=== PATIENT | male | born 1945 | race Caucasian/White ===

== ENCOUNTER 2017-07-30 05:26 | Inpatient (IN) ==
[2017-07-30] MEDS ORDERED: SODIUM PHOSPHATE ENEMA 133 ML BOTTLE RECTAL ONE ×2 (05:53→06:00)
[2017-07-30] MEDS ORDERED: SODIUM CHLORIDE 0.9% 50 ML IV ONE (05:53)
[2017-07-30] MEDS ORDERED: cefTRIAXone 1,000 MG VIAL ONE (05:53)
[2017-07-30] MEDS ORDERED: ALVIMOPAN 12 MG CAPSULE PO ONE (06:00)
[2017-07-30] MEDS ORDERED: LACTATED RINGERS 1,000 ML IV SCH (07:00)
[2017-07-30] MEDS ORDERED: ALVIMOPAN 12 MG CAPSULE ONE (07:13)
[2017-07-30 08:39] LABS: Apearance,Urine CLEAR (Clear); Bacteria,Urine Occasional /HPF (Few); Bilirubin,Urine Negative (Negative); Blood, Urine Negative (Negative); Glucose,Urine (UA) Negative (Negative); Ketones,Urine 5 mg/dL (Negative); Mucus,Urine Occasional /LPF (Occasional); Nitrite,Urine Negative (Negative); Protein,Urine 30 MG/DL; RBC,Urine 6 /HPF (0-4); Squamous Epithelial Cell,Urine Occasional /HPF (0-10); Urine Color Yellow (Yellow); WBC,Urine 2 /HPF (0-6)
[2017-07-30] MEDS ORDERED: GLYCOPYRROLATE 0.4 MG/2 ML VIAL ONE (09:00)
[2017-07-30] MEDS ORDERED: ONDANSETRON 4 MG/2 ML VIAL ONE (09:00)
[2017-07-30] MEDS ORDERED: LIDOCAINE 2% 5 ML VIAL ONE (09:00)
[2017-07-30] MEDS ORDERED: PROPOFOL 200 MG/20 ML VIAL IV ONE (09:00)
[2017-07-30] MEDS ORDERED: ROCURONIUM 100 MG/10 ML VIAL IV ONE (09:00)
[2017-07-30] MEDS ORDERED: NEOSTIGMINE 10 MG/10 ML VIAL ONE (09:00)
[2017-07-30] MEDS ORDERED: LIDOCAINE 100 MG/5 ML SYRINGE ONE (09:00)
[2017-07-30] MEDS ORDERED: SUCCINYLCHOLINE 200 MG/10 ML VIAL ONE (09:00)
[2017-07-30] MEDS ORDERED: PHENYLEPHRINE 1 MG/10 ML SYRINGE IV ONE (09:00)
[2017-07-30] MEDS ORDERED: ONDANSETRON 4 MG/2 ML VIAL IV PRN (11:11)
[2017-07-30] MEDS ORDERED: HYDROmorphone PCA 30 MG/30 ML SYRINGE IV ONE (11:25)
[2017-07-30] MEDS ORDERED: MIDAZOLAM 2 MG/2 ML VIAL ONE (11:30)
[2017-07-30] MEDS ORDERED: SEVOFLURANE 1 UNIT/15 MINUTE INH ONE (11:30)
[2017-07-30] MEDS ORDERED: ACETAMINOPHEN 1,000 MG/100 ML VIAL IV ONE (11:30)
[2017-07-30] MEDS ORDERED: SODIUM CHLORIDE 0.9% 1,000 ML IV SCH (11:30)
[2017-07-30] MEDS ORDERED: fentaNYL 100 MCG/2 ML VIAL ONE ×2 (11:30)
[2017-07-30] MEDS: HYDROmorphone PCA 30 MG/30 ML SYRINGE IV SCH (11:31)
--- NOTE | 2017-07-30 11:32 | Operative Note ---
Date of procedure: 07/30/17 Pre-op diagnosis: Prostate cancer, intermediate risk Post-op diagnosis: same Procedure: 72-year-old white male referred with elevated PSA. Biopsy proved intermediate risk carcinoma prostate. Patient has elected undergo robotic assisted laparoscopic radical prostatectomy. This procedure was explained at length and in detail. Risks, complications, outcomes, sequelae, prognosis and alternative therapy was discussed. Patient understood this and agreed to proceed. Patient is brought to the operative suite placed table in supine position on the securing pads. He is then given a general endotracheal anesthetic and then secured to the table in the usual fashion. He is then prepared and draped in usual sterile manner. 22 Yemeni More was inserted in the bladder and the bladder was drained and the More was clamped. Formal timeout performed. An incision is created up in the left upper quadrant for the mini gel port. This is about 3 cm in length. This is carried down to the rectus which was divided in the peritoneal cavity is entered atraumatically. The posterior sheath incised to the extent of the incision. Mini gel port placed and then capped. Pneumoperitoneum was obtained. Trochars placed in the GelPort and the camera was inserted and intra-abdominal contents are noted. There is some adhesions along the sigmoid which need to be taken down but otherwise were fine. There is some scar over the by the internal ring on the right from hernia repair that was done about 3 months ago. Posterior approach was performed initially. The sigmoid was taken down from its adhesions. An incision created anterior cul-de-sac and the vas deferens were identified they were dissected out isolated clipped and divided. Seminal vesicles were dissected out of their bed. Window in Denonvilliers's was created. Attention was directed to creating the bladder flap. Incision created lateral to the median umbilical ligaments on both sides carried down the internal rings and then the median umbilical ligaments were divided and the bladder flap was dropped down with sharp and blunt dissection. Endopelvic fascia was incised on both sides and dissection was continued up the puboprostatics. The dorsal venous complex was a band shaped complex and somewhat scarred. I am not sure why that was the way it was. But a #1 Vicryl was used to ligate this at the notch. Attention was directed bladder neck. The junction of the prostate and bladder were identified and then the cautery was used to dissect down to this. Sharp dissection was then continued after that to the longitudinal fibers and the bladder neck was entered. Bladder was drained. Ureteral orifices were identified and were well away from the resecting area. Posterior bladder neck was incised. The rest of the bladder was dissected off and the lateral pedicles were then taken down individually clipped and divided. This was a nerve sparing so the lateral prostatic fascia was incised and dissected down to the base of the prostate. This was done on both sides. The remaining posterior lateral pedicles were taken down and clipped and divided. Prostate was freed up posteriorly. Sharp dissection were used to divide prostate from the rectum. There was some small bleeders that were left bleed and coagulate. Attention was directed to the dorsal vein this was divided with cautery and the anterior urethra was incised. Remaining prostatic attachments were divided and the posterior urethra was divided and the prostate with associated seminal vesicles were removed and placed in a specimen bag and retracted to the left upper quadrant. Pelvis was irrigated and drained. Bilateral no dissection was done. Began on the right side. The adventitia of the external iliac vein was entered and then developed dissection was continued down to the obturator fossa. The obturator nerve was identified kept in view at all times and not injured. Galen package was then swept out small lymphatics and blood vessels were coagulated. The galen package was sent separately. Left side was done similar manner. The obturator nerve was not injured. Amnio patch was then brought and placed on the nerves. 2-0 Vicryl was used approximate the posterior urethral plate to the posterior bladder neck. Then 3 oh kody suture was used to provide anastomosis beginning at 6 o'clock position outside in on the urethra and the bladder neck and then running from the 7:00 to 12:00 and 5:00 to 12 o'clock position. New 22 Yemeni More catheter was inserted and the anastomotic suture was tied tightly. The catheter was irrigated and this was a watertight and asked him. The pneumoperitoneum was dropped to 0 there was no significant bleeding. The robot was then undocked and the patient was laying flat. I re-scrubbed came to the field. The ports were removed specimen was removed in its bag as well as the mini port. All wounds are irrigated and drained and hemostasis checked with cautery. The GelPort wound was closed with running 0 Monocryl. And then skin closed skin clips on all wounds. Sterile dressings were placed on the wounds. More catheter was left to gravity drainage. Patient tolerates procedure well. Patient was awakened general anesthesia and sent to the recovery room in stable condition. All sponge, needle and instrument counts correct 2. Implants: 22 Yemeni silicone More Surgeon / Physician: Daniel Perry Estimated blood loss: other (100 cc) Specimens: other (Prostate with seminal vesicles, bilateral obturator nodes) Condition: stable Disposition: PACU Discharge Plan - Discharge Medications No Action hydroCHLOROthiazide [Hydrochlorothiazide] 25 mg PO DAILY Potassium Chloride 10 meq PO DAILY Aspirin EC Tab 81 mg PO DAILY Amlodipine Besylate 5 mg PO DAILY Ezetimibe [Zetia] 10 mg PO DAILY [place]-3S/Dha/Epa/Fish Oil [Fish Oil 1,200 mg Softgel] 1 each PO DAILY - Follow Up or Referral - Forms/Instructions
--- NOTE | 2017-07-30 12:45 | Urology Progress Note ---
Urology - PN: Subj Interval history: Postoperative check. Patient is awake and alert. Urine is blood-tinged. Vital signs are stable. Patient is stable. Exam - Constitutional Vitals: Period Temp Pulse Resp BP Sys/Damico Pulse Ox Last 24 Hr 97.2 F-98.2 F 68-96 16-22 116-162/69-105 96-100
--- NOTE | 2017-07-30 17:32 | Internal Medicine Consult Note ---
Assessment and Plan (1) Prostate cancer Status: Acute Assessment and plan: 72-year-old male admitted to acute care * Status post robotic radical prostatectomy. Patient is doing fairly well. More catheter in place and is blood-tinged * Hypertension. Blood pressure is stable. Continue current treatment * Dyslipidemia. Patient will be continued on Zetia * I will follow him for medical problems Current Visit: Yes (2) Hypertension Status: Acute Current Visit: Yes (3) Hyperlipidemia Status: Acute Current Visit: Yes History of Present Illness - Data of Consult Patient: known to practice within the last 3 years - Consult Narrative Reason for consult: Medical management History of present illness: Mr. Gómez is a 72 year old male with history of hypertension, hyperlipidemia, prostate cancer who underwent robotic assisted radical prostatectomy this morning. Patient is doing well postoperatively. He denies any chest pain or shortness of breath. He denies any nausea, vomiting or diarrhea. He is tolerating diet well this afternoon. He denies any fever or chills. He is quite comfortable at this time. CC: Daniel Perry MD - Home Medications and Allergies Home Medications: Home Medications Medication Instructions Recorded Confirmed Type Amlodipine Besylate 5 mg PO DAILY 07/23/17 07/30/17 History Aspirin EC Tab 81 mg PO DAILY 07/23/17 07/30/17 History Ezetimibe [Zetia] 10 mg PO DAILY 07/23/17 07/30/17 History [place]-3S/Dha/Epa/Fish Oil [Fish 1 each PO DAILY 07/23/17 07/30/17 History Oil 1,200 mg Softgel] Potassium Chloride 20 meq PO DAILY 07/23/17 07/30/17 History hydroCHLOROthiazide 25 mg PO DAILY 07/23/17 07/30/17 History [Hydrochlorothiazide] Allergies/Adverse Reactions: Allergies Allergy/AdvReac Type Severity Reaction Status Date / Time No Known Allergies Allergy Verified 07/30/17 13:03 12 point system: reviewed and no additional remarkable complaints except as stated (As mentioned in HPI) Medical,Surgical,& Family Hx - Medical History Cardio: History of: Hypertension Neurology: No history of: Seizures HEENT: History of: Eye Problem (READING GLASSES), Dental Problems (FULL SET) Endocrine: History of: Dyslipidemia Respiratory: History of: Respiratory Problems (FLU VAC-YES 2015; PNEU VAC- YES 2015.) Genitourinary: History of: Prostate Problems Other: History of: Cancer (PROSTATE CA) - Surgical History Abdominal Surgeries: Surgical HX of: Hernia Repair Orthopedic Surgeries: Surgical HX of;: Orthopedic Surgery (AMANDA FOOT SURGERY 40 YRS AGO.) - Family History Family History: Reports;: Family Cancer (Brother), Family Diabetes (Father and mother), Family Heart Disease (Father) - Social History Smoking Status: Current every day smoker Frequency of Alcohol Use: Rarely Type of Drug Use: None Marital Status: Lives With:: Spouse Functional capacity: independent ambulation Exam (Progress Note) - Constitutional Vitals: Period Temp Pulse Resp BP Sys/Damico Pulse Ox Last 24 Hr 97.2 F-98.4 F 68-96 16-22 116-162/64-105 96-100 Exam: Examination: GENERAL: NAD. HEENT: PERRLA. EOMI. Mucous membranes are moist. NECK: Neck is supple. No JVD. No carotid bruit. No thyromegaly. CVS: Regular rate and rhythm. S1 and S2 are normal. RESPIRATORY: Lungs are clear. No rales or rhonchi. ABDOMEN: Soft and nontender. Bowel sounds are present. No hepatosplenomegaly. Dressing present over the surgical site EXT: No edema. Peripheral pulses are present. TIRE SPOTTER: Patient is awake, alert and oriented to time place and person. Cranial nerves II through XII are grossly intact. Motor strength is 5 over 5 both upper and lower extremities. SKIN: Warm and dry. MSK: No obvious deformity.
[2017-07-30] MEDS: OXYBUTYNIN XL 10 MG TABLET PO SCH (21:35)
[2017-07-30] MEDS: LACTULOSE 20 GM/30 ML UDCUP PO SCH (21:35)
[2017-07-30] MEDS: ALVIMOPAN 12 MG CAPSULE PO SCH (21:35)
[2017-07-31 06:27] LABS: Basophils # 0.1 10*3/uL (0.0-0.2); Basophils % 0.5 % (0.0-0.8); Eosinophils # 0.1 10*3/uL (0.0-0.87); Eosinophils % 0.8 % (0.00-10.9); Hematocrit 38.3 VOL% (42.0-52.0); Hemoglobin 12.6 GM/DL (14.0-18.0); Immature Granulocytes % 0.5 %; Immature Granulocytes Absolute 0.05 #; Lymphocytes # 1.6 10*3/uL (1.4-4.0); Lymphocytes % 15.3 % (21.2-54.2); Mean Corpuscular HGB Conc 32.9 GM/DL (32-36); Mean Corpuscular Hemoglobin 31 PG (27-34); Mean Corpuscular Volume 95.5 FL (87-102); Mean Platelet Volume 11.8 FL (9.6-12.0); Monocytes # 0.9 10*3/uL (0.11-0.8); Monocytes % 8.3 % (1.7-12.7); Neutrophils # 7.8 10*3/uL (1.4-7.4); Neutrophils % 74.6 % (38.7-73.9); Platelet Count 193 T/CUMM (130-400); Red Blood Count 4.01 MC/CUMM (3.8-5.5); Red Cell Distribution Width 13.7 % (9.3-17.3); White Blood Count 10.4 T/CUMM (4-12)
[2017-07-31 06:53] LABS: Osmolality,Calculated 284.7 MOS/KG (273-304); Potassium 3.7 MMOL/L (3.5-5.1)
--- NOTE | 2017-07-31 07:45 | Internal Med Progress Note ---
Assessment and Plan (1) Prostate cancer Status: Acute Assessment and plan: 72-year-old male admitted to acute care * Status post robotic radical prostatectomy. He is doing well. * Hypertension. Blood pressure is stable. Continue current treatment * Dyslipidemia. Patient will be continued on Zetia * Pain is under good control Current Visit: Yes (2) Hypertension Status: Acute Current Visit: Yes (3) Hyperlipidemia Status: Acute Current Visit: Yes Internal Medicine - PN: Subj Interval history: He is feeling okay this morning. He denies any pain. He has not used his POND SAWYER Exam (Progress Note) - Constitutional Vitals: Period Temp Pulse Resp BP Sys/Damico Pulse Ox Last 24 Hr 97.2 F-99.4 F 74-96 16-22 102-162/57-105 91-100 Exam: Examination: GENERAL: NAD. HEENT: Mucous membranes are moist CVS: Regular rate and rhythm. S1 and S2 are normal. RESPIRATORY: Lungs are clear. No rales or rhonchi. ABDOMEN: Soft and nontender. Bowel sounds are present. Dressing present over the surgical site EXT: No edema. Peripheral pulses are present. REGIONAL ENGINEER: Nonfocal SKIN: Warm and dry. MSK: No obvious deformity. Results - Labs CBC & BMP: 07/31/17 04:46 07/31/17 04:46 Lab Results: I have reviewed the past 24 hour labs
[2017-07-31] MEDS: OMEGA 3 ACID ETHYL ESTERS 1 GM CAPSULE PO SCH (08:23)
[2017-07-31] MEDS: hydroCHLOROthiazide 25 MG TABLET PO SCH (08:23)
[2017-07-31] MEDS: EZETIMIBE 10 MG TABLET PO SCH (08:23)
[2017-07-31] MEDS: POTASSIUM CHLORIDE 10 MEQ TABLET PO SCH (08:23)
[2017-07-31] MEDS: LACTULOSE 20 GM/30 ML UDCUP PO SCH ×2 (08:23→21:11)
[2017-07-31] MEDS: amLODIPine 5 MG TABLET PO SCH (08:23)
[2017-07-31] MEDS: ALVIMOPAN 12 MG CAPSULE PO SCH ×2 (08:23→21:12)
--- NOTE | 2017-07-31 08:55 | Anesthesia Post-Op ---
Anesthesia Post OP - Post Ansesthetic Evaluation Patient seen in post op: Yes Resp: within normal limits CV: within normal limits Mental: within normal limits Temp: within normal limits [id number]: within normal limits Nausea and Vomiting: within normal limits Pain: within normal limits
[2017-07-31] MEDS: HYDROmorphone PCA 30 MG/30 ML SYRINGE IV SCH (11:08)
[2017-07-31] MEDS ORDERED: oxyCODONE/ACETAMINOPHEN 5-325 MG TABLET PO PRN ×2 (11:46→11:54)
[2017-07-31] MEDS ORDERED: MEPERIDINE 50 MG/1 ML VIAL IM PRN (11:47)
--- NOTE | 2017-07-31 11:48 | Urology Progress Note ---
Urology - PN: Subj Interval history: Postop day 1. Patient is doing well. Urine is clear. Abdomen is soft. He is tolerating his diet. I will stop his ROLL TABLE OPERATOR and INT his IV and remove the IV fluids. He needs to ambulate. We will place him on oral medicines. Demerol if needed. H&H is 13 and 38. Electrolytes normal along with his creatinine. Exam - Constitutional Vitals: Period Temp Pulse Resp BP Sys/Damico Pulse Ox Last 24 Hr 97.2 F-99.4 F 74-91 17-20 102-149/57-81 91-99 Results - Labs CBC & BMP: 07/31/17 04:46 07/31/17 04:46
[2017-07-31] MEDS: OXYBUTYNIN XL 10 MG TABLET PO SCH (21:12)
--- NOTE | 2017-08-01 08:44 | Discharge Summary ---
Hospital Course - Hospital Course Hospital Course: 72-year-old gentleman with intermediate risk carcinoma prostate like to undergo robotic prostatectomy. He underwent this without difficulty. His wounds are healing well. His urine is clear he is tolerating regular diet he. He has not had a bowel movement yet but we are having given him a laxative and this can be done at home. His pathology reports pending. We will discharge him to follow- up in the office in 1 week for catheter removal and then 2 weeks to see me and have his clips removed. Discharge medications Percocet 5 mg, #20, 1-2 every 4- 6 hours as needed pain, no refills. Ditropan XL 10 mg, #7, 1 p.o. daily, no refills Diagnosis - Discharge Diagnosis (1) Prostate cancer Status: Acute (2) Hypertension Status: Acute (3) Hyperlipidemia Status: Acute Discharge Plan - Discharge Data Disposition: Disch To Home/Self Care Condition at Discharge: Stable Discharge Diet: regular diet Activity: no lifting, other (Walking on flat ground is encouraged) Hygiene: no restrictions Weight Bearing at Discharge: full weight bearing Driving: not until seen by doctor Contact your physician if you experience:: fever over 101, Redness or swelling, Bleeding, pain uncontrolled by pain medications - Discharge Medications New Oxybutynin Xl [Ditropan Xl] 10 mg PO BEDTIME tablet oxyCODONE/ACETAMINOPHEN 5-325 [Percocet 5-325] 1 tablet PO Q4H PRN tablet PRN Reason: Pain Moderate (4-7) oxyCODONE/ACETAMINOPHEN 5-325 [Percocet 5-325] 2 tablet PO Q4H PRN tablet PRN Reason: Pain Moderate (4-7) Continue hydroCHLOROthiazide [Hydrochlorothiazide] 25 mg PO DAILY Potassium Chloride 20 meq PO DAILY Aspirin EC Tab 81 mg PO DAILY Amlodipine Besylate 5 mg PO DAILY Ezetimibe [Zetia] 10 mg PO DAILY [place]-3S/Dha/Epa/Fish Oil [Fish Oil 1,200 mg Softgel] 1 each PO DAILY - Follow Up or Referral - Forms/Instructions Exam - Constitutional Vitals: Period Temp Pulse Resp BP Sys/Damico Pulse Ox Last 24 Hr 98.6 F-99.9 F 75-95 18-20 119-151/67-75 91-96 DS: Provider Date of admission: 07/30/17 11:11 Attending physician on admission: Daniel Perry MD Consults: 07/30/17 11:17 Consult to Physician [CONS] Routine Comment: Prostate cancer, known to you Consulting Provider: Axel Valencia Consult to Specialist Group: Urology When should Consulting Provider be notified: Now Person Notified: Carla Date Notified: 07/30/17 Time Notified: 13:10 Discharging clinician: Daniel Perry MD
--- NOTE | 2017-08-01 08:51 | Internal Med Progress Note ---
Assessment and Plan (1) Prostate cancer Status: Acute Assessment and plan: 72-year-old male admitted to acute care * Status post robotic radical prostatectomy. He is doing well. * Hypertension. Blood pressure is stable. Continue current treatment * Dyslipidemia. Patient will be continued on Zetia * Patient is being discharged to home today. I will see him at his regular visit next month Current Visit: Yes (2) Hypertension Status: Acute Current Visit: Yes (3) Hyperlipidemia Status: Acute Current Visit: Yes Internal Medicine - PN: Subj Interval history: He is feeling okay this morning. He has done well after his surgery. No complaints Exam (Progress Note) - Constitutional Vitals: Period Temp Pulse Resp BP Sys/Damico Pulse Ox Last 24 Hr 98.6 F-99.9 F 75-95 18-20 119-151/67-75 91-96 Exam: Examination: GENERAL: NAD. HEENT: Mucous membranes are moist CVS: Regular rate and rhythm. S1 and S2 are normal. RESPIRATORY: Lungs are clear. No rales or rhonchi. ABDOMEN: Soft and nontender. Bowel sounds are present. Dressing present over the surgical site EXT: No edema. Peripheral pulses are present. APPRAISER IRRIGATION TAX: Nonfocal SKIN: Warm and dry. MSK: No obvious deformity. Results - Labs CBC & BMP: 07/31/17 04:46 07/31/17 04:46 Lab Results: I have reviewed the past 24 hour labs
[2017-08-01] MEDS: LACTULOSE 20 GM/30 ML UDCUP PO SCH (09:22)
[2017-08-01] MEDS: POTASSIUM CHLORIDE 10 MEQ TABLET PO SCH (09:22)
[2017-08-01] MEDS: EZETIMIBE 10 MG TABLET PO SCH (09:22)
[2017-08-01] MEDS: ALVIMOPAN 12 MG CAPSULE PO SCH (09:22)
[2017-08-01] MEDS: amLODIPine 5 MG TABLET PO SCH (09:23)
[2017-08-01] MEDS: OMEGA 3 ACID ETHYL ESTERS 1 GM CAPSULE PO SCH (09:23)
[2017-08-01] MEDS: hydroCHLOROthiazide 25 MG TABLET PO SCH (09:24)
[2017-08-01 12:40] VITALS: BP 114/92
--- NOTE | 2017-08-05 09:16 | Pathology Report from [facility] ---
[facility] [place] # : [id number] PATIENT NAME : Santana Gómez ORDERING DR : BILL FARRELL MD CLINICAL HX: Prostate CA POST-OP DX: Same SPECIMEN INFO: #1 RT seminal vesicle #2 LT seminal vesicle #3 RT obt. node # 4 LT obt. node #5 Prostate GROSS DESCRIPTION: #1 Received in formalin labeled with the patients name SANTANA GÓMEZ and #1 RT SV consists of a 3.0 cm x up to 1.1 cm bliss-almanzar seminal vesicle. Foreman/Project Manager sections are submitted in cassette #1.#2 Received in formalin labeled with the patients name SANTANA GÓMEZ and #2 LT SV consists of a 2.1 x 2.2 cm x up to 0.5 cm bliss-almanzar seminal vesicle. Foreman/Project Manager sections are submitted in cassette #2.#3 Received fresh labeled with the patients name SANTANA GÓMEZ and #3 RT OBT NODE consists of two yellow-almanzar fatty tissue fragments together measuring 2.9 x 2.4 cm. Sectioning reveals two lymph nodes measuring 0.5 x 0.2 cm and the second measuring up to 2.5 cm. All nodes are inked black, and both are sectioned and submitted in cassette #3.#4 Received fresh labeled with the patients name SANTANA GÓMEZ and #4 LT OBT NODE consists of a 2.8 x 1.9 x 0.5 cm yellow-brown fatty tissue fragment. Sectioning reveals an elongated 4.5 cm firm possible lymph node. Sectioned and submitted in cassette #4.#5 Received in formalin labeled with the patients name SANTANA GÓMEZ and #5 PROSTATE consists of a 27 gram prostate measuring 3.5 x 2.8 x 4.0 cm. The serosa is erythematous shaggy. The right side is inked black, the left side is inked blue. Cut surfaces are pink-almanzar. Sections submitted as follows: 5A apical margin, 5B base margin, 5C thru 5J right prostate from apex to base, 5K thru 5O left prostate from apex to base. DIAGNOSIS FOR SANTANA GÓMEZ: #1- #5 PROSTATE, RADICAL PROSTATECTOMY (4 x 3.5 x 2.8 cm, 27 gm), WITH OBTURATOR NODES: TYPE: Acinar adenocarcinoma. SITE: Bilateral lobes. GRADE: Primary Pattern Grade = 3 (59 %); Secondary Pattern Grade = 4 (40%); Total Mary Score =7. Tertiary Ruso Pattern = 5 ( 2 foci, < 1%). MARY GRADE GROUP: 2(3+4=7). PERCENTAGE OF MARY PATTERNS 4 and 5: Pattern 4 (40)%; Pattern 5 (2 foci, < 1%). TUMOR QUANTITATION: Percentage of prostate involved by tumor = 10%. Dominant nodule = 18 mm (right lateral). MARGINS : Margins uninvolved by invasive carcinoma. EXTRAPROSTATIC EXTENSION: Present , focal site (right lateral). SEMINAL VESICLE INVASION: Not identified. URINARY BLADDER NECK INVASION: Not identified. TREATMENT EFFECT: No known presurgical therapy. LYMPH-VASCULAR INVASION: Not identified. PERINEURAL INVASION: Present. LYMPH NODES: Number examined = 3; Number involved = 0 (0/3 ). AJCC (2018) PATHOLOGIC STAGE: III ([id number]). COLLECTED DATE: 07/31/2017 [facility] REPORT DATE: 08/04/2017 ELECTRONICALLY SIGNED BY: Nya Garcia M.D. 08/04/2017 - 11:22:46 [id number]
== END 2017-08-01 11:25 | disposition home or self-care (01) | DRG 708 ==
LOC: N.OR 05:26 → N.SDSINP 06:08 → EDSTATUS 07:30 → N.SDSINP 11:11 → N.5E 12:42
PROVIDERS: ADMIT Urology; ATTEND Urology